=== PATIENT | female | born 2000 | race Caucasian/White ===

== ENCOUNTER 2024-07-06 18:45 | Emergency (ER) | payer OTHER ==
[~2024-07-06] VITALS: Ht 152.4 cm; Wt 56.8 kg
[2024-07-06 18:58] VITALS: TEMP 98.6
[2024-07-06] MEDS ORDERED: FLUO-418 PO (19:02)
[2024-07-06] MEDS ORDERED: PREN1TAB80 PO (19:02)
[2024-07-06 19:30] LABS: COVID AG,FIA SOURCE NASAL SWAB
[2024-07-06 19:42] LABS: RAPID GROUP A STREP NEGATIVE (NEGATIVE)
[2024-07-06 19:51] LABS: INFLUENZA TYPE A NEGATIVE FOR TYPE A (NEGATIVE); INFLUENZA TYPE B NEGATIVE FOR TYPE B (NEGATIVE); SARS-COV2 (COVID) ANTIGEN,FIA Negative (Negative)
[2024-07-06 19:52] VITALS: BP 117/64; PULSE 78; RESP 18; O2SAT 98
[2024-07-06] MEDS: ACETAMINOPHEN 325 MG TABLET PO ONE (22:40)
== END 2024-07-06 22:49 | disposition home or self-care (01) ==
LOC: EMS 18:45
DX: O99.511 Diseases of the respiratory system complicating pregnancy, first trimester (principal); J02.8 Acute pharyngitis due to other specified organisms; Z3A.12 12 weeks gestation of pregnancy; Z79.899 Other long term (current) drug therapy; Z20.822 Contact with and (suspected) exposure to COVID-19
CPT/HCPCS: 87430; 87804; 99283